=== PATIENT | female | born 1980 | race Caucasian/White ===

== ENCOUNTER 2024-03-25 16:09 | Emergency (ER) | payer OTHER, SELFPAY ==
[2024-03-25 16:13] VITALS: BP 129/89
[2024-03-25 16:48] LABS: COVID-19 Antigen Negative (Negative)
--- NOTE | 2024-03-25 19:33 | ED.GENMED ---
History of Present Illness
General
Chief Complaint: Cold/Flu/URI Symptoms
Time Seen by Provider: 03/25/24 19:31
History of Present Illness
History of Present Illness:
TIME OF INITIAL ENCOUNTER: 7:35 PM
HPI: The patient presents due to general unwell feeling. She started having a cough a few days ago but then yesterday started having a general weak feeling along with myalgias, headaches, and nausea. She had a telehealth visit today where it was
suggested that she may have the flu and they called in Tamiflu however it was noted that she had a temperature of 105 today so they came to the emergency department instead. She states that she has trouble sitting up as it makes her head hurt worse.
EXAM:
GENERAL: The patient appears generally weak and somewhat uncomfortable, borderline febrile
HEENT: Moist oral mucosa
CARDIOVASCULAR: No murmurs, tachycardic heart rate, regular rhythm, No chest wall tenderness
PULMONARY: No respiratory distress, breath sounds are clear and equal
ABDOMEN: Soft with no peritoneal signs, no tenderness
NEUROLOGIC: Good strength all extremities, no coordination deficits
PSYCHIATRIC: Appropriate mental status, normal insight and judgement
EXTREMITIES: Nontender, no edema, moves all extremities equally
SKIN: No rash, no lesions
NUMBER AND COMPLEXITY OF PROBLEMS ADDRESSED AT THE ENCOUNTER
� Chronic conditions affecting care: Asthma
� Acute Exacerbation and/or Progression of Chronic Illness: This is an acute problem
� Differential Diagnosis includes: Viral syndrome, influenza, sepsis, dehydration, ANKIT
AMOUNT AND/OR COMPLEXITY OF DATA TO BE REVIEWED AND ANALYZED
� I performed an independent evaluation of and my interpretation is:
EKG:
CT:
X-rays:
Laboratory Studies: COVID-negative, flu positive, white count 4.7, chemistries relatively unremarkable, normal renal function
Other:
� Review of other/old records: No old records available for review
� Clinical information was obtained by an independent historian: I spoke to significant other at bedside
� Prescriptions/Medications Considered but not given:
� Further testing considered but not performed:
RISK OF COMPLICATIONS AND/OR MORBIDITY OR MORTALITY OF PATIENT MANAGEMENT
� Social determinants of health affecting care: Lives at home
� Discussion with other providers:
� Escalation of care including admission/observation vs risk of discharge considered: The patient appears generally weak. She is tachycardic and borderline febrile and did have a reported temperature of 105 earlier. Will give
IV fluids and also check labs, give Toradol, Tamiflu, and Zofran.
ANY OTHER UPDATES:
10 PM: On reassessment, patient overall feels improved.
Phy Exam
Physical Exam
Physical Exam:
See HPI
Course
Orders/Labs/Results
Orders:
Orders
03/25/24 16:21
COVID-19 Antigen Urgent
Source: Nasal Swab
Influenza A+B Rapid Molecular Urgent
BONG Source: Nasal Swab
Specimen Description:
03/25/24 19:42
0.9% Sodium Chloride 1000 ml [Nss] 1,000 ml IV BOLUS
Ketorolac [Toradol] 15 mg IV NOW STA
Ondansetron Injectable [Zofran] 4 mg IV NOW STA
Oseltamivir Phosphate [Tamiflu] 75 mg PO NOW STA
03/25/24 20:18
Basic Metabolic Panel Urgent
Complete Blood Count/With Diff Urgent
Abnormal Lab Results
03/25/24
20:18
WBC 4.7 L 10^3/uL
(4.8-10.8)
Absolute Lymphs (auto) 1.0 L 10^3/uL
(1.2-3.4)
Monocytes % 13.1 H %
(1.7-9.3)
Potassium 3.4 L mmol/L
(3.5-5.1)
03/25/24 20:18
03/25/24 20:18
Vital Signs
Initial and Last Documented VS:
Initial Vital Signs
Temp Pulse Resp BP Pulse Ox
37.9 C 112 18 129/89 97
03/25/24 16:13 03/25/24 16:13 03/25/24 16:13 03/25/24 16:13 03/25/24 16:13
Last Documented Vital Signs
Temp Pulse Resp BP Pulse Ox
37.9 C 112 18 129/89 97
03/25/24 16:13 03/25/24 16:13 03/25/24 16:13 03/25/24 16:13 03/25/24 16:13
*Critical Care Note
Total Time (30-74mins, 75-104mins- exclusive of procedures): Not Applicable
ED Attending Note
-
Portions of this chart may have been created with voice recognition software.� Occasional wrong word or��sound alike� substitutions may have occurred due to the inherent limitations of voice recognition software.
Discharge Plan
Departure
Patient Disposition: Home (Routine Discharge)
Date of Disposition: 03/25/24
Time of Disposition: 22:00
Patient with high blood pressure during this ER visit?: Yes
Discharge Problem:
Influenza A
Instructions: Flu, Fever, Adult (DC)
Referrals:
Ileana Zepeda, DO [Family Provider] -
Activity Restrictions/Additional Instructions:
You did test positive for influenza A. Continue Tamiflu. Basic blood work is relatively unremarkable. Continue Tylenol and/or Motrin for fevers/achiness.
Interventions
Interventions:
*Risk Screen - Suicide Last Done: 03/25/24 16:13
*General Assessment Last Done: 03/25/24 16:13
*Neglect/Abuse Screening Last Done: 03/25/24 20:28
*ED COVID-19 Vaccine History Last Done: 03/25/24 16:13
ED- Pulmonary Assessment Last Done: 03/25/24 20:28
Discharge Date and Time
Print Language: CYPRIOT
[2024-03-25] MEDS: TAMIFLU 75 MG PO (20:24)
[2024-03-25] MEDS: TORADOL 15 MG IV (20:25)
[2024-03-25] MEDS: NSS 1000 IV (20:25)
[2024-03-25] MEDS: ZOFRAN 4 MG IV (20:25)
[2024-03-25 20:34] LABS: % Basophils 0.2 % (0-2); % Immature Granulocytes 0.4 % (0-0.5); % Monocytes 13.1 % (1.7-9.3); % Neutrophils 65.3 % (42.2-75.2); Absolute Monocytes 0.6 10^3/uL (0.1-0.6); Hemoglobin 13.8 g/dL (12.0-16.0); Mean Corp Hgb Conc. 34.5 g/dL (33.0-37.0); Mean Corpuscular Hgb 29.9 pg (27.0-31.0); Mean Corpuscular Volume 86.8 fL (81.0-99.0); Mean Platelet Volume 9.6 fL (7.4-10.4); Nucleated Red Blood Cells % 0 %; Platelet Count 220 10^3/uL (130-400); Red Blood Cell Count 4.61 10^6/uL (4.20-5.40); Red Cell Dist. Width 13.2 % (11.5-14.5); White Blood Cell Count 4.7 10^3/uL (4.8-10.8)
[2024-03-25 20:47] LABS: Blood Urea Nitrogen 7 mg/dl (7-17); Calcium 8.6 mg/dl (8.4-10.2); Carbon Dioxide 25 mmol/L (22-30); Chloride 102 mmol/L (98-107); Glucose 97 mg/dl (70-99); Potassium 3.4 mmol/L (3.5-5.1); Sodium 136 mmol/L (135-145); eGFR > 60.00
[2024-03-25 22:09] VITALS: BP 131/91
== END 2024-03-25 22:10 | disposition home or self-care (01) ==
LOC: EMR 16:09
PROVIDERS: Student in an Organized Health Care Education/Training Program; EMERGENCY PHYSICIAN Emergency Medicine; FAMILY PHYSICIAN Family Medicine
DX: J10.1 Influenza due to other identified influenza virus with other respiratory manifestations (principal); Z11.52 Encounter for screening for COVID-19; R03.0 Elevated blood-pressure reading, without diagnosis of hypertension
CPT/HCPCS: 99284; 96374; 96375; 96361; 80048; 85025; 87502; 87811